=== PATIENT | male | born 2000 | race Caucasian/White ===

== ENCOUNTER 2022-08-18 20:16 | Emergency (ER) | payer OTHER ==
[~2022-08-18] VITALS: Ht 180.3 cm; Wt 81.8 kg
[2022-08-18] MEDS ORDERED: PERCOCET 5MG/325MG TAB PO ONE (20:55)
[2022-08-18] MEDS ORDERED: ISOVUE-370 76% 100ML VIAL As Ordered ONE (21:17)
[2022-08-18 21:30] LABS: BASO # 0.1 10^3/uL (0.0-0.2); BASO % 0.7 % (0.0-1.0); EOS # 0.1 10^3/uL (0.0-0.5); EOS % 0.9 % (0.0-3.0); HEMATOCRIT 40.2 % (42.0-52.0); HEMOGLOBIN 13.5 g/dl (13.5-17.5); LYMPH # 1.8 10^3/uL (1.5-5.0); LYMPH % 19.8 % (24.0-44.0); MEAN CORPUSCULAR HEMOGLOBIN 29.6 pg (27.0-33.0); MEAN CORPUSCULAR HGB CONC 33.6 g/dl (32.0-36.5); MEAN CORPUSCULAR VOLUME 88.2 fl (80.0-96.0); MONO % 11.3 % (2.0-8.0); PLATELET COUNT, AUTOMATED 228 10^3/uL (150-450); RED BLOOD COUNT 4.56 10^6/uL (4.30-6.10)
[2022-08-18 21:42] LABS: INR 1.03; PROTHROMBIN TIME 13.7 SECONDS (12.5-14.5)
[2022-08-19] MEDS ORDERED: PERCOCET PO (00:39)
[2022-08-19] MEDS ORDERED: UNRESOLVED CLARIFICATION ENTRY XX STA (00:39)
[2022-08-19 00:48] VITALS: BP 128/60; TEMP 97.8; O2SAT 99
[2022-08-19] MEDS ORDERED: OXYCODONE/APAP 5MG/325MG(HOME DOSE PACK) PO ONE (01:00)
== END 2022-08-19 01:15 | disposition home or self-care (01) ==
LOC: M ED 20:16
DX: S42.001A Fracture of unspecified part of right clavicle, initial encounter for closed fracture (principal); V86.55XA Driver of 3- or 4- wheeled all-terrain vehicle (ATV) injured in nontraffic accident, initial encounter; Y92.89 Other specified places as the place of occurrence of the external cause; Y93.89 Activity, other specified; Y99.8 Other external cause status; F17.200 Nicotine dependence, unspecified, uncomplicated
CPT/HCPCS: 36415; 71260; 73000; 73060; 80047; 85025; 85610; 93005; 99284; Q9967

== ENCOUNTER → 2022-08-25 | Day surgery (SDC) | payer OTHER ==
[~2022-08-25] VITALS: Ht 180.3 cm; Wt 80.7 kg
[~2022-08-25] MED LIST: ACETAMINOPHEN 1000MG 100ML IV BAG As Ordered ONE; DESFLURANE 240 ML INHALANT As Ordered ONE; EPINEPHrine 1MG/ML INJ 30ML MD-VIAL As Ordered ONE; GLYCOPYRROLATE INJ 0.2 MG/ML 2 ML VIAL As Ordered ONE; HYDROMORPHONE HCL 0.5 MG/ 0.5 ML SYRINGE IV PRN; HYDROmorphone HCL 2MG/ML 1ML VIAL As Ordered ONE; KETOROLAC 60MG 2ML VIAL As Ordered ONE; LIDOCAINE 2% 100MG/5ML SDV (FOR ANES.) As Ordered ONE; LR 1,000 ML IV SCH; METOCLOPRAMIDE INJ 10MG/2ML VIAL IV PRN; MIDAZOLAM INJ 2MG/2ML VIAL As Ordered ONE; ONDANSETRON 4MG 2ML VIAL As Ordered ONE; ONDANSETRON 4MG 2ML VIAL IV PRN; PERCOCET PO; PHENYLephrine 500MCG 5ML (100MCG/ML) SYRINGE As Ordered ONE; ROCURONIUM BROMIDE 50MG/5ML VIAL As Ordered ONE; SEVOFLURANE INHAL SOLN 250 ML BTL As Ordered ONE; SUGAMMADEX SODIUM 500 MG/5 ML VIAL (BRIDION) As Ordered ONE; TRANEXAMIC ACID 100 MG/ML 10ML VIAL As Ordered ONE; TRANEXAMIC ACID 100 MG/ML 10ML VIAL IV ONE; VANCOMYCIN 1000MG/20ML VIAL As Ordered ONE; ceFAZolin 2 GM/D5W 50 ML IV BAG As Ordered ONE; ceFAZolin SOD 2 GM in IV 1 EA IV ONE; ePHEDrine SULFATE 25 MG/5 ML(5MG/ML) SYRINGE As Ordered ONE; fentaNYL 100 MCG/2 ML INJECTION As Ordered ONE; fentaNYL 100 MCG/2 ML INJECTION IV PRN; oxyCODONE 5MG TAB PO PRN; propofoL 200 MG/20 ML VIAL As Ordered ONE
[2022-08-26 02:15] VITALS: BP 107/49; TEMP 97.7; O2SAT 100
== END | disposition home or self-care (01) ==
LOC: M SDC 13:05
PROVIDERS: ATTEND Orthopaedic Surgery
DX: S42.031A Displaced fracture of lateral end of right clavicle, initial encounter for closed fracture (principal); S43.81XA Sprain of other specified parts of right shoulder girdle, initial encounter; V49.60XA Unspecified car occupant injured in collision with unspecified motor vehicles in traffic accident, initial encounter; Y92.410 Unspecified street and highway as the place of occurrence of the external cause; F17.290 Nicotine dependence, other tobacco product, uncomplicated
CPT/HCPCS: 23515; 23550; 73000; C1713; C9290; J0131; J0171; J0665; J0690; J1100; J1170; J1885; J2250; J2371; J2405; J3010